=== PATIENT | male | born 1935 | race African-American/Black ===

== ENCOUNTER → 2017-03-03 | Outpatient (CLI) | payer MEDICARE ==
[~2017-03-03] MED LIST: ASPIR-LOW81 MG PO; ATENOLOL100 MG PO; CALCIUM 500 MG1 EACH PO; CHLORTHALIDONE50 MG PO; CIPRO500 MG PO; LO-DOSE ASPIRIN81 M1 PO; METRONIDAZOLE500 MG PO; OMEPRAZOLE20 M2 PO; VITAMIN D2000 UNIT PO
== END | disposition home or self-care (01) ==
LOC: CDC 09:47
DX: I49.1 Atrial premature depolarization (principal); R94.31 Abnormal electrocardiogram [ECG] [EKG]
CPT/HCPCS: 93000

== ENCOUNTER 2017-12-07 07:59 | Day surgery (SDC) | payer OTHER, MEDICARE ==
[~2017-12-07] VITALS: Ht 179.1 cm; Wt 91.2 kg
[~2017-12-07 07:59] MED LIST changes: +HYDROCHLOROTHIA25 MG PO; +LISINOPRIL30 MG PO; +METFORMIN HCL500 MG PO; +OMEPRAZOLE20 MG PO; +PREDNISONE10 MG PO; +SPIRONOLACTONE25 MG PO; +TRAMADOL HCL50 MG PO; +TUMS500 MG PO
[2017-12-07] MEDS ORDERED: CYANOCOBAL1000 MCG/2 IM (08:44)
[2017-12-07] MEDS ORDERED: XGEVA120 MG/1.7 SC (08:46)
[2017-12-07] MEDS ORDERED: LUPRON DEPOT7.5 MG IM (08:46)
== END 2017-12-07 10:19 | disposition home or self-care (01) ==
LOC: CATH 07:59
PROVIDERS: Surgery
DX: Z45.2 Encounter for adjustment and management of vascular access device (principal); I87.8 Other specified disorders of veins; C61 Malignant neoplasm of prostate; E11.9 Type 2 diabetes mellitus without complications; Z79.84 Long term (current) use of oral hypoglycemic drugs; Z87.891 Personal history of nicotine dependence; Z79.82 Long term (current) use of aspirin
CPT/HCPCS: 82948; C1788; C1894; J1644; J2250; J3010; S0020